=== PATIENT | male | born 1935 | race Caucasian/White ===

== ENCOUNTER 2022-07-07 20:24 | Inpatient (IN) ==
[2022-07-07] MEDS ORDERED: Naloxone 0.4 MG/ML INJ IVP PRN (22:00)
[2022-07-07] MEDS ORDERED: Acetaminophen 325 MG TABLET PO PRN (22:00)
[2022-07-07] MEDS ORDERED: Melatonin 3 MG TABLET PO PRN (22:00)
[2022-07-07] MEDS ORDERED: Ondansetron 4 MG/2 ML VIAL IVP PRN (22:00)
[2022-07-08 04:30] LABS: Hematocrit 42.3 % (37.5-50.1); Hemoglobin 13.4 g/dL (12.9-16.9); Mean Corpuscular HGB Conc 31.7 g/dL (31.6-35.5); Mean Corpuscular Hemoglobin 29.8 pg (28.0-33.3); Mean Platelet Volume 10.5 fL (9.4-12.4); Platelet Count 152 K/mcL (140-400); Red Cell Distribution Width 12.7 % (11.5-14.5); White Blood Count 5.1 K/mcL (4.3-11.1)
[2022-07-08 04:50] LABS: Potassium 4.2 mEq/L (3.5-5.1)
[2022-07-08] MEDS: *HR* Heparin 5,000 UNIT/ML VIAL SQ SCH ×3 (05:45→21:43)
[2022-07-08] MEDS: NIFEdipine XL (24 HR) 30 MG TAB.ER.24 PO SCH (18:22)
[2022-07-09] MEDS: *HR* Heparin 5,000 UNIT/ML VIAL SQ SCH ×2 (05:42→13:33)
[2022-07-09] MEDS: NIFEdipine XL (24 HR) 30 MG TAB.ER.24 PO SCH (07:58)
[2022-07-09] MEDS: lisinopriL 5 MG TABLET PO SCH (07:58)
[2022-07-09] MEDS: Finasteride 5 MG TABLET PO SCH (07:58)
[2022-07-09] MEDS: Metoprolol XL (24 HR) Succ 25 MG TAB.ER.24H PO SCH (07:58)
[2022-07-09 14:38] LABS: Basophils % 0.4 %; Eosinophils # 0.5 K/mcL (0.0-0.6); Hematocrit 42.9 % (37.5-50.1); Hemoglobin 13.7 g/dL (12.9-16.9); Immature Granulocytes % 0.2 % (0-4); Lymphocytes # 1.2 K/mcL (0.6-4.6); Lymphocytes % 24.6 %; Mean Corpuscular HGB Conc 31.9 g/dL (31.6-35.5); Mean Corpuscular Hemoglobin 29.9 pg (28.0-33.3); Mean Corpuscular Volume 93.7 fL (83.0-100.0); Mean Platelet Volume 10.6 fL (9.4-12.4); Monocytes # 0.4 K/mcL (0.0-1.3); Monocytes % 8.8 %; Neutrophils # 2.8 K/mcL (1.6-8.9); Platelet Count 164 K/mcL (140-400); Red Blood Count 4.58 M/mcL (4.19-5.50); Red Cell Distribution Width 12.6 % (11.5-14.5)
[2022-07-09 15:01] LABS: Albumin 3.2 g/dL (3.5-5.7); Albumin/Globulin Ratio 1.2 (1.1-2.2); Bilirubin,Direct 0.1 mg/dL (0.0-0.2); Bilirubin,Indirect 0.8 mg/dL (0.0-1.0); Bilirubin,Total 0.9 mg/dL (0.3-1.0); Calcium 8.1 mg/dL (8.6-10.3); Globulin 2.7 g/dL (2.4-3.5); Potassium 4.2 mEq/L (3.5-5.1); Total Protein 5.9 g/dL (6.4-8.9)
[2022-07-09] MEDS ORDERED: Iopamidol - 370 500 ML MLS IVP ONE (17:15)
[2022-07-09 19:57] LABS: Adenovirus Not Detected (Not Detect); Coronavirus 229E Not Detected (Not Detect); Coronavirus HKU1 Not Detected (Not Detect); Coronavirus NL63 Not Detected (Not Detect); Coronavirus OC43 Not Detected (Not Detect)
[2022-07-09 19:58] LABS: Bordetella Pertussis Not Detected (Not Detect); Chlamydophila pneumoniae Not Detected (Not Detect); Human Metapneumovirus Not Detected (Not Detect); Human Rhinovirus/Enterovirus Not Detected (Not Detect); Influenza A Subtype 2009 H1 Not Detected (Not Detect); Influenza B Not Detected (Not Detect); Mycoplasma pneumoniae Not Detected (Not Detect); Parainfluenza Virus 1 Not Detected (Not Detect); Parainfluenza Virus 2 Not Detected (Not Detect); Parainfluenza Virus 3 Not Detected (Not Detect); Parainfluenza Virus 4 Not Detected (Not Detect); Respiratory Syncytial Virus Not Detected (Not Detect)
[2022-07-09 19:59] LABS: SARS-CoV-2 DETECTED (Not Detect)
[2022-07-09] MEDS ORDERED: Remdesivir 200 MG in 0.9 % Sodium Chloride 100 ML IVPB ONE (21:00)
[2022-07-10] MEDS ORDERED: *HR* Rivaroxaban 10 MG TABLET PO SCH (06:00)
[2022-07-10] MEDS: *HR* Enoxaparin 40 MG/0.4 ML SYRINGE SQ SCH (06:18)
[2022-07-10 07:25] LABS: Albumin 3.2 g/dL (3.5-5.7); Albumin/Globulin Ratio 1.1 (1.1-2.2); Bilirubin,Direct 0.1 mg/dL (0.0-0.2); Bilirubin,Indirect 0.4 mg/dL (0.0-1.0); Bilirubin,Total 0.5 mg/dL (0.3-1.0); Globulin 2.8 g/dL (2.4-3.5)
[2022-07-10] MEDS: lisinopriL 5 MG TABLET PO SCH (09:17)
[2022-07-10] MEDS: NIFEdipine XL (24 HR) 30 MG TAB.ER.24 PO SCH (09:17)
[2022-07-10] MEDS: Finasteride 5 MG TABLET PO SCH (09:17)
[2022-07-10] MEDS: Metoprolol XL (24 HR) Succ 25 MG TAB.ER.24H PO SCH (09:17)
[2022-07-10] MEDS: Aspirin Enteric Coated 81 MG Tablet PO SCH (09:17)
[2022-07-10] MEDS ORDERED: Metoprolol XL (24 HR) Succ 50 MG TAB.ER.24H PO SCH (12:15)
[2022-07-10] MEDS ORDERED: Remdesivir 100 MG in 0.9 % Sodium Chloride 100 ML IVPB SCH (21:00)
[2022-07-11 06:09] LABS: Eosinophils % 0.1 %; Hematocrit 39.9 % (37.5-50.1); Hemoglobin 13.1 g/dL (12.9-16.9); Immature Granulocytes % 0.5 % (0-4); Lymphocytes # 1.5 K/mcL (0.6-4.6); Lymphocytes % 13.5 %; Mean Corpuscular HGB Conc 32.8 g/dL (31.6-35.5); Mean Corpuscular Hemoglobin 30.1 pg (28.0-33.3); Mean Corpuscular Volume 91.7 fL (83.0-100.0); Mean Platelet Volume 10.8 fL (9.4-12.4); Monocytes # 0.8 K/mcL (0.0-1.3); Monocytes % 7.2 %; Neutrophils # 8.8 K/mcL (1.6-8.9); Platelet Count 236 K/mcL (140-400); Red Blood Count 4.35 M/mcL (4.19-5.50); Red Cell Distribution Width 12.7 % (11.5-14.5); Segmented Neutrophils % 78.7 %
[2022-07-11 06:10] LABS: White Blood Count 11.2 K/mcL (4.3-11.1)
[2022-07-11 06:29] LABS: Calcium 8.2 mg/dL (8.6-10.3); Potassium 4.6 mEq/L (3.5-5.1)
[2022-07-11] MEDS: *HR* Enoxaparin 40 MG/0.4 ML SYRINGE SQ SCH (06:41)
[2022-07-11] MEDS: Aspirin Enteric Coated 81 MG Tablet PO SCH (08:56)
[2022-07-11] MEDS: Finasteride 5 MG TABLET PO SCH (08:56)
[2022-07-11] MEDS: Metoprolol XL (24 HR) Succ 25 MG TAB.ER.24H PO SCH (08:57)
[2022-07-11] MEDS: NIFEdipine XL (24 HR) 30 MG TAB.ER.24 PO SCH (08:57)
[2022-07-11] MEDS ORDERED: lisinopriL 5 MG TABLET PO SCH (09:00)
[2022-07-11 13:56] VITALS: BP 104/61; PULSE 55; TEMP 97.7; O2SAT 95
== END 2022-07-11 18:39 | DRG 535 ==
LOC: 4WAOSI → SUATTDRO 21:32
PROVIDERS: ADMIT Internal Medicine; ATTEND Student in an Organized Health Care Education/Training Program